=== PATIENT | female | born 1990 | race African-American/Black ===

== ENCOUNTER → 2016-12-08 14:20 | Observation (INO) ==
[2016-12-05 13:24] LABS: Basophils % 0.2 % (0.0-0.8); Eosinophils # 0.1 10*3/uL (0.0-0.87); Eosinophils % 0.8 % (0.00-10.9); Hematocrit 36.7 VOL% (35.7-47.0); Immature Granulocytes % 0.3 %; Immature Granulocytes Absolute 0.04 #; Lymphocytes # 2.4 10*3/uL (1.4-4.0); Mean Corpuscular HGB Conc 35.4 GM/DL (32-36); Mean Corpuscular Hemoglobin 31 PG (27-34); Mean Corpuscular Volume 86.2 FL (87-102); Monocytes # 1.1 10*3/uL (0.11-0.8); Monocytes % 8.9 % (1.7-12.7); Neutrophils # 8.5 10*3/uL (1.4-7.4); Neutrophils % 69.8 % (38.7-73.9); Platelet Count 280 T/CUMM (130-400); Red Blood Count 4.26 MC/CUMM (3.8-5.5); Red Cell Distribution Width 11.9 % (9.3-17.3); White Blood Count 12.2 T/CUMM (4-12)
[2016-12-05] MEDS: LACTATED RINGERS 1,000 ML IV SCH ×3 (13:45→23:44)
[2016-12-05] MEDS: PROMETHAZINE 25 MG/1 ML VIAL IM PRN (13:46)
[2016-12-05] MEDS: ONDANSETRON 4 MG/2 ML VIAL IV PRN (13:52)
[2016-12-05 13:56] LABS: Albumin 3.7 G/DL (3.4-5.0); Calcium 8.9 MG/DL (8.5-10.1); Osmolality,Calculated 266.1 MOS/KG (273-304); Potassium 3.8 MMOL/L (3.5-5.1); Total Protein 7.2 G/DL (6.4-8.3)
[2016-12-05] MEDS: LABETALOL 100 MG TABLET PO SCH (14:41)
[2016-12-05] MEDS: ACETAMINOPHEN 325 MG TABLET PO PRN (15:06)
[2016-12-05] MEDS: PANTOPRAZOLE 40 MG VIAL IV SCH (20:59)
[2016-12-06] MEDS: DOCUSATE SODIUM 100 MG CAPSULE PO SCH ×3 (02:56→21:06)
[2016-12-06] MEDS: LABETALOL 100 MG TABLET PO SCH ×3 (02:56→21:06)
[2016-12-06] MEDS: LACTATED RINGERS 1,000 ML IV SCH ×2 (06:00→12:23)
[2016-12-06] MEDS: ONDANSETRON 4 MG/2 ML VIAL IV PRN ×2 (06:41→17:48)
[2016-12-06] MEDS: ACETAMINOPHEN 325 MG TABLET PO PRN ×2 (07:03→12:14)
[2016-12-06 07:04] LABS: Apearance,Urine Slightly Hazy (Clear); Bilirubin,Urine Negative (Negative); Blood, Urine Negative (Negative); Glucose,Urine (UA) Negative (Negative); Ketones,Urine Negative (Negative); Mucus,Urine Many /LPF (Occasional); Nitrite,Urine Negative (Negative); Protein,Urine Negative; RBC,Urine 2 /HPF (0-4); Squamous Epithelial Cell,Urine Occasional /HPF (0-10); Urine Color Yellow (Yellow); Urine Specific Gravity 1.014 (1.001-1.035); WBC,Urine 6 /HPF (0-6)
[2016-12-06 07:40] LABS: Barbiturates Screen,Urine Negative (Negative); Benzodiazepines Screen,Urine Negative (Negative); Cannabinoid Screen,Urine Positive (Negative); Opiate Screen,Urine Negative (Negative); Phencyclidine Screen,Urine Negative (Negative)
--- NOTE | 2016-12-06 08:08 | Ultrasound Report ---
US OB <= 14 weeks fetus Indication: well-being Findings: Uterus is 10.4 cm in length. Gestational sac is present with pole measurements estimating age at 9 weeks 3 days. heart rate is 177 beats per minute. No abnormality is visualized around the gestational sac. Amniotic fluid volume appears within normal limits for age. Placenta detail is limited. The ovaries appear within normal limits. No free fluid is seen. Impression: Single intrauterine gestation estimated age 9 weeks 3 days without abnormality visualized. PROCEDURE INTERPRETED AT [facility] Final Report Signed by: Dr. Duane Duran
[2016-12-06] MEDS: PANTOPRAZOLE 40 MG VIAL IV SCH ×2 (09:02→21:11)
[2016-12-06] MEDS: MAGNESIUM HYDROXIDE SUSP 30 ML UDCUP PO PRN (10:23)
--- NOTE | 2016-12-06 13:33 | OB/GYN History & Physical ---
History of Present Illness Chief complaint: Hyperemesis gravidarum, PIH History of present illness: Ms. Brown is a 25 year old female This patient presents with excessive nausea and vomiting, no vaginal bleeding, no leaking of fluid, no pelvic pain. Symptoms have been present for since she had confirmed positive test. Oral meds have not been relieving her symptoms. She is admitted at this time for IV fluids and also anti-emetics. Home Medications Medication Instructions Recorded Confirmed Type Labetalol Tab [Trandate Tab] 200 tablet PO BID 12/05/16 12/05/16 History Multivitamin () [ 1 tablet PO DAILY 12/05/16 12/05/16 History Vitamin] Ondansetron Tab [Zofran Tab] 4 tablet PO Q4HR PRN 12/05/16 12/05/16 History metroNIDAZOLE TAB [Flagyl Cap/Tab] 250 tablet PO TID 12/05/16 12/05/16 History Allergies Allergy/AdvReac Type Severity Reaction Status Date / Time No Known Allergies Allergy Verified 12/04/16 17:24 Medical,Surgical,& Family Hx - Medical History Cardio: History of: Hypertension - Surgical History Reproductive Surgeries: Surgical HX of;: Section - Social History Smoking Status: Never smoker Type of Drug Use: None Exam [employer] - Constitutional Vitals: Vital Signs Temp Pulse Resp BP BP Pulse Ox 12/06/16 12:00 98.1 F 90 18 132/79 99 12/06/16 07:16 98.3 F 78 20 122/74 98 12/06/16 06:00 18 12/06/16 05:00 12/06/16 04:00 97.1 F L 79 18 111/72 100 12/06/16 03:00 20 12/06/16 02:00 18 12/06/16 01:00 20 12/06/16 00:00 97 F L 86 16 111/73 100 12/05/16 19:15 98.2 F 101 H 20 109/63 100 12/05/16 15:41 97.5 F L 84 18 127/78 100 General appearance: no acute distress - Antepartum / Post Antepartum Exam Cervix - Dilatation: Thick - Head Head exam: Present: normal inspection - Eye Eye exam: Present: EOMI Pupils: Present: BRIAN - ENT ENT exam: Present: normal exam - Neck Neck exam: Present: normal inspection - Respiratory Respiratory exam: Present: clear to auscultation bilaterally - Breast Breasts: as per HPI Menstruation: as per HPI - Cardiovascular Cardiovascular exam: Present: regular rate and rhythm - GI/Abdominal GI/Abdominal exam: Present: normal bowel sounds - Extremities Exam Extremities exam: Present: normal inspection - Back Exam Back exam: Present: normal inspection - Neurological Exam Neurological exam: Present: alert, oriented X3 - Psychiatric Psychiatric exam: Present: normal affect - Skin Skin exam: Present: normal color Assessment and Plan (1) Nausea and vomiting during Status: Acute Assessment and plan: IV fluids, Phenergan, Zofran, check electrolytes and chemistry panel, also will obtain old OB ultrasound. Current Visit: No Results - Labs CBC & BMP: 12/05/16 13:15 12/05/16 13:15
[2016-12-06] MEDS: guaiFENesin/CODEINE 5 ML LIQUID PO PRN (13:53)
[2016-12-06] MEDS: FLUTICASONE 50 MCG NASAL SPRAY 16 GM BOTTLE BOTH NARES SCH ×3 (14:39→23:08)
[2016-12-07] MEDS: LABETALOL 100 MG TABLET PO SCH ×2 (07:50→09:26)
[2016-12-07] MEDS: DOCUSATE SODIUM 100 MG CAPSULE PO SCH ×2 (08:43→21:25)
[2016-12-07] MEDS: MAGNESIUM HYDROXIDE SUSP 30 ML UDCUP PO PRN ×2 (08:43→21:24)
[2016-12-07] MEDS: FLUTICASONE 50 MCG NASAL SPRAY 16 GM BOTTLE BOTH NARES SCH ×2 (08:44→22:00)
[2016-12-07] MEDS: PANTOPRAZOLE 40 MG VIAL IV SCH ×2 (08:44→21:24)
[2016-12-07 09:55] LABS: Basophils % 0.3 % (0.0-0.8); Eosinophils # 0.1 10*3/uL (0.0-0.87); Eosinophils % 1.2 % (0.00-10.9); Hematocrit 32.9 VOL% (35.7-47.0); Hemoglobin 11.6 GM/DL (12.0-16.0); Immature Granulocytes % 0.4 %; Immature Granulocytes Absolute 0.04 #; Lymphocytes # 1.9 10*3/uL (1.4-4.0); Mean Corpuscular HGB Conc 35.3 GM/DL (32-36); Mean Corpuscular Hemoglobin 31 PG (27-34); Mean Corpuscular Volume 87.3 FL (87-102); Mean Platelet Volume 9.3 FL (9.6-12.0); Monocytes # 0.8 10*3/uL (0.11-0.8); Monocytes % 8.3 % (1.7-12.7); Neutrophils # 6.4 10*3/uL (1.4-7.4); Neutrophils % 68.8 % (38.7-73.9); Platelet Count 239 T/CUMM (130-400); Red Blood Count 3.77 MC/CUMM (3.8-5.5); White Blood Count 9.3 T/CUMM (4-12)
[2016-12-07 10:15] LABS: Alanine Aminotransferase 115 U/L (13-56); Alkaline Phosphatase 51 U/L (45-117); Aspartate Amino Transferase 35 U/L (0-37); Bilirubin,Total < 0.39 MG/DL (0.2-1.0); Blood Urea Nitrogen 2 MG/DL (7-18); Calcium 8.5 MG/DL (8.5-10.1); Glucose 84 MG/DL (74-106); Osmolality,Calculated 267.8 MOS/KG (273-304); Potassium 3.4 MMOL/L (3.5-5.1); Sodium 137 MMOL/L (136-145); Total Protein 5.9 G/DL (6.4-8.3)
--- NOTE | 2016-12-07 11:37 | OB/GYN Progress Note ---
Assessment and Plan (1) Hyperemesis gravidarum Status: Acute Assessment and plan: Continue current management plan. Current Visit: Yes [facility] - PN: Subj Interval history: Stable. Beginning to feel better. Exam [facility] [employer] [facility] - Constitutional Vitals: Vital Signs Temp Pulse Resp BP BP Pulse Ox 12/07/16 08:00 97 F L 83 18 149/104 140/91 98 12/07/16 06:31 20 12/07/16 06:00 20 12/07/16 05:00 20 12/07/16 04:00 97.7 F 85 18 137/79 100 12/07/16 03:00 18 12/07/16 02:00 20 12/07/16 01:00 20 12/07/16 00:00 98 F 85 18 127/78 99 12/06/16 20:00 98.3 F 98 H 20 143/92 99 12/06/16 15:45 97.6 F 96 H 23 122/70 98 12/06/16 12:00 98.1 F 90 18 132/79 99 General appearance: no acute distress - Head Head exam: Present: normal inspection - Respiratory Respiratory exam: Present: clear to auscultation bilaterally - Cardiovascular Cardiovascular exam: Present: regular rate and rhythm - GI/Abdominal GI/Abdominal exam: Present: normal bowel sounds, soft - Extremities Exam Extremities exam: Present: normal inspection - Back Exam Back exam: Present: normal inspection - Neurological Exam Neurological exam: Present: alert, oriented X3 - Psychiatric Psychiatric exam: Present: normal affect, normal mood - Skin Skin exam: Present: normal color, warm Results - Labs CBC & BMP: 12/07/16 09:32 12/07/16 09:32
[2016-12-07] MEDS: LACTATED RINGERS 1,000 ML IV SCH ×3 (14:17→22:00)
[2016-12-07] MEDS: guaiFENesin/CODEINE 5 ML LIQUID PO PRN (15:10)
[2016-12-07] MEDS: ONDANSETRON 4 MG/2 ML VIAL IV PRN (18:52)
[2016-12-07] MEDS: LABETALOL 200 MG TABLET PO SCH (21:24)
[2016-12-07] MEDS: PROMETHAZINE 25 MG/1 ML VIAL IM PRN (23:10)
[2016-12-08] MEDS: LACTATED RINGERS 1,000 ML IV SCH (06:20)
[2016-12-08] MEDS: LABETALOL 200 MG TABLET PO SCH (08:55)
[2016-12-08] MEDS: DOCUSATE SODIUM 100 MG CAPSULE PO SCH (08:55)
[2016-12-08] MEDS: FLUTICASONE 50 MCG NASAL SPRAY 16 GM BOTTLE BOTH NARES SCH (08:58)
[2016-12-08] MEDS: PANTOPRAZOLE 40 MG VIAL IV SCH (08:59)
[2016-12-08 10:16] LABS: Collection Time,Urine 24 HOURS; Total Volume,Urine 3225 ML (400-2000)
[2016-12-08 10:27] LABS: Total Protein 24 Hr Ur Result 258 MG/24HR (0-149.1)
[2016-12-08 10:28] LABS: Creatinine 24 Hr Urine Result 0.99 G/24HR (0.60-1.80)
[2016-12-08] MEDS: ONDANSETRON 4 MG/2 ML VIAL IV PRN (11:10)
[2016-12-08 11:36] VITALS: BP 140/86
--- NOTE | 2016-12-08 13:05 | Discharge Summary ---
Hospital Course - Hospital Course Hospital Course: Patient being discharged on her third hospital day. Admitted with hyperemesis gravidarum, and also hypertension. The 24-hour urine was within normal limits, she has had one episode per day of nausea. She is being discharged with Phenergan suppositories and Zofran and instructed very thoroughly on a bland diet. Ultrasound demonstrated cardiac activity. This patient will be follow- up in our office in approximately 3 weeks. Diagnosis - Discharge Diagnosis (1) Nausea and vomiting during Status: Acute Specialty Discharge - Follow Up or Referrals Follow up with: Theodora Ng MD [Physician] - Discharge Plan - Discharge Data Condition at Discharge: Stable Discharge Diet: advance to your usual diet Activity: increase activity as tolerated Hygiene: may shower Weight Bearing at Discharge: weight bear as tolerated Driving: no restrictions Contact your physician if you experience:: fever over 101, Bleeding - Discharge Medications New Ondansetron Tab [Zofran Tab] 4 mg PO Q4H #30 tablet Promethazine Supp [Phenergan Supp] 25 mg RECTAL Q4H #10 supp No Action Multivitamin () [ Vitamin] 1 tablet PO DAILY Labetalol Tab [Trandate Tab] 200 tablet PO BID metroNIDAZOLE TAB [Flagyl Cap/Tab] 250 tablet PO TID Ondansetron Tab [Zofran Tab] 4 tablet PO Q4HR PRN PRN Reason: Nausea/Vomiting - Follow Up or Referral Follow Up: Theodora Ng MD [Physician] - - Forms/Instructions Instructions: (DC), Hyperemesis Gravidarum (DC), Diet (GEN) , Hypertension (DC) Exam - Constitutional Vitals: Period Temp Pulse Resp BP Sys/Lanza Pulse Ox Last 24 Hr 97.0 F-99.3 F 80-97 18-20 120-152/83-97 98-99 Discharge Results Labs on day of discharge: Labs from last 24 hours 12/08/16 12/08/16 10:11 10:11 Urine Collection Time 24 24 Urine Total Volume 3225 H 3225 H Ur Creatinine Timed 0.99 Ur Total Protein 24 Hr 258 H DS: Provider Date of admission: 12/05/16 12:21 Primary care physician: . No PCP Attending physician on admission: Theodora Ng MD Consults: 12/06/16 07:58 Consult to Case Mgmt/Social Srvs [CONS] Routine Reason for Case Mgmt/Social Srvs: Other Consult Comment: pos thc screen/ 9 wks. iup Discharging clinician: Theodora Ng MD
[~2016-12-08 14:20] MED LIST: LABETALOL 100 MG TABLET PO SCH; MAGNESIUM CITRATE 300 ML BOTTLE PO PRN; PHENOL 1.4% THROAT SPRAY 177 ML BOTTLE PO PRN; SODIUM PHOSPHATE ENEMA 133 ML BOTTLE RECTAL ONE; metroNIDAZOLE 250 MG TABLET PO SCH
== END | disposition home or self-care (01) ==
LOC: N.OB
PROVIDERS: ADMIT Obstetrics & Gynecology; ATTEND Obstetrics & Gynecology

== ENCOUNTER 2017-05-27 11:25 | Inpatient (IN) ==
[2017-05-27] MEDS ORDERED: ONDANSETRON 4 MG/2 ML VIAL IV PRN (12:17)
[2017-05-27] MEDS ORDERED: OXYTOCIN 10 UNIT/ML VIAL IM ONE (12:21)
[2017-05-27] MEDS ORDERED: OXYTOCIN/LR 30 UNIT/1,000 ML BAG IV ONE (12:21)
[2017-05-27] MEDS ORDERED: CITRIC ACID/SODIUM CITRATE 30 ML UDCUP PO ONE (12:23)
[2017-05-27] MEDS ORDERED: ePHEDrine 50 MG/ML AMP IV PRN (12:23)
[2017-05-27] MEDS ORDERED: LACTATED RINGERS 1,000 ML IV ONE (12:23)
[2017-05-27] MEDS ORDERED: hydrOXYzine HCL 25 MG/1 ML VIAL IM PRN ×2 (12:23→17:41)
[2017-05-27] MEDS ORDERED: PROMETHAZINE 25 MG/1 ML VIAL IM ONE (12:23)
[2017-05-27] MEDS ORDERED: FAMOTIDINE 20 MG/2 ML VIAL IV ONE (12:23)
[2017-05-27] MEDS ORDERED: LACTATED RINGERS 250 ML IV PRN (12:23)
[2017-05-27] MEDS ORDERED: diphenhydrAMINE 50 MG/1 ML VIAL IV PRN ×3 (12:23→17:41)
[2017-05-27] MEDS ORDERED: ceFAZolin 2,000 MG in PREMIX 1 EACH IV ONE (12:29)
[2017-05-27 12:40] LABS: Basophils % 0.3 % (0.0-0.8); Eosinophils # 0.1 10*3/uL (0.0-0.87); Eosinophils % 0.4 % (0.00-10.9); Hematocrit 33.1 VOL% (35.7-47.0); Hemoglobin 11.1 GM/DL (12.0-16.0); Immature Granulocytes % 0.5 %; Immature Granulocytes Absolute 0.06 #; Lymphocytes # 1.9 10*3/uL (1.4-4.0); Lymphocytes % 16.1 % (21.3-54.2); Mean Corpuscular HGB Conc 33.5 GM/DL (32-36); Mean Corpuscular Hemoglobin 30 PG (27-34); Mean Corpuscular Volume 88.3 FL (87-102); Mean Platelet Volume 10.3 FL (9.6-12.0); Monocytes # 1.3 10*3/uL (0.11-0.8); Monocytes % 10.8 % (1.7-12.7); Neutrophils # 8.6 10*3/uL (1.4-7.4); Neutrophils % 71.9 % (38.7-73.9); Platelet Count 293 T/CUMM (130-400); Red Blood Count 3.75 MC/CUMM (3.8-5.5); Red Cell Distribution Width 12.9 % (9.3-17.3); White Blood Count 11.9 T/CUMM (4-12)
[2017-05-27 12:48] LABS: INR 0.9; PT Patient Result 9.4 SECS; Partial Thromboplastin Time 28.9 SECS (0-40)
[2017-05-27 13:02] LABS: Alanine Aminotransferase 16 U/L (13-56); Albumin 2.6 G/DL (3.4-5.0); Alkaline Phosphatase 123 U/L (45-117); Aspartate Amino Transferase 24 U/L (0-37); Bilirubin,Direct < 0.050 MG/DL (0.0-0.20); Bilirubin,Total < 0.39 MG/DL (0.2-1.0); Blood Urea Nitrogen 12 MG/DL (7-18); Calcium 8.3 MG/DL (8.5-10.1); Glucose 87 MG/DL (74-106); Potassium 4.2 MMOL/L (3.5-5.1); Sodium 136 MMOL/L (136-145); Total Protein 6.3 G/DL (6.4-8.3); Uric Acid 4.5 MG/DL (2.6-6.0)
[2017-05-27] MEDS ORDERED: MAGNESIUM SULF RIDER 100 ML IV ONE (14:08)
[2017-05-27] MEDS ORDERED: LABETALOL 200 MG TABLET PO ONE (14:10)
[2017-05-27] MEDS: LACTATED RINGERS 1,000 ML IV SCH (14:29)
[2017-05-27] MEDS: MAGNESIUM SULF DRIP 40 GM/1,000 ML ML IV SCH (15:29)
[2017-05-27 17:41] LABS: Cord Arterial Blood HCO3 23.9 MMOL/L
[2017-05-27] MEDS ORDERED: HYDROmorphone 2 MG/1 ML VIAL IV PRN (17:41)
[2017-05-27 17:43] LABS: Apearance,Urine CLEAR (Clear); Bacteria,Urine Occasional /HPF (Few); Bilirubin,Urine Negative (Negative); Blood, Urine Negative (Negative); Glucose,Urine (UA) Negative (Negative); Ketones,Urine 20 mg/dL (Negative); Mucus,Urine Occasional /LPF (Occasional); Nitrite,Urine Negative (Negative); Protein,Urine Negative; RBC,Urine <1 /HPF (0-4); Squamous Epithelial Cell,Urine Occasional /HPF (0-10); Urine Color Colorless (Yellow); Urine Specific Gravity 1.008 (1.001-1.035); Urine Urobilinogen < 2.0 EU/DL (0.2-1.0); WBC,Urine <1 /HPF (0-6)
[2017-05-27] MEDS ORDERED: fentaNYL 100 MCG/2 ML VIAL ONE (17:44)
[2017-05-27] MEDS ORDERED: MORPHINE 10 MG/10 ML VIAL ONE (17:44)
[2017-05-27 17:45] LABS: Cord Venous Blood HCO3 22.7 MMOL/L; Cord Venous Blood PCO2 42.6 MMHG; Cord Venous Blood PO2 30.6 MMHG
[2017-05-27] MEDS: hydrALAZINE 20 MG/1 ML VIAL IV PRN ×2 (19:06→19:26)
[2017-05-27] MEDS ORDERED: OXYTOCIN/LR 20 UNIT/1,000 ML BAG IV ONE ×2 (19:20→19:21)
[2017-05-27] MEDS ORDERED: NALOXONE 0.4 MG/ML VIAL IV PRN (19:48)
[2017-05-27] MEDS ORDERED: OXYTOCIN 10 UNIT/ML VIAL ONE (19:59)
[2017-05-27] MEDS ORDERED: MORPHINE PCA 30 MG/30 ML SYRINGE IV SCH (20:00)
[2017-05-28] MEDS ORDERED: SODIUM CHLORIDE 0.9% 100 ML IV ONE ×2 (03:53→16:13)
[2017-05-28] MEDS ORDERED: ceFAZolin 1,000 MG in SYRINGE 1 EACH IV SCH ×2 (04:00→16:30)
[2017-05-28] MEDS: ceFAZolin 1,000 MG in SYRINGE 1 EACH IV SCH ×2 (04:00→16:19)
[2017-05-28 06:28] LABS: Basophils % 0.2 % (0.0-0.8); Eosinophils % 0.1 % (0.00-10.9); Hematocrit 34.2 VOL% (35.7-47.0); Hemoglobin 11.3 GM/DL (12.0-16.0); Immature Granulocytes % 0.4 %; Immature Granulocytes Absolute 0.07 #; Lymphocytes # 2.1 10*3/uL (1.4-4.0); Lymphocytes % 12.4 % (21.3-54.2); Mean Corpuscular Hemoglobin 30 PG (27-34); Mean Corpuscular Volume 89.5 FL (87-102); Mean Platelet Volume 10.2 FL (9.6-12.0); Monocytes # 1.4 10*3/uL (0.11-0.8); Monocytes % 8.2 % (1.7-12.7); Neutrophils # 13.2 10*3/uL (1.4-7.4); Neutrophils % 78.7 % (38.7-73.9); Platelet Count 311 T/CUMM (130-400); Red Blood Count 3.82 MC/CUMM (3.8-5.5); Red Cell Distribution Width 12.8 % (9.3-17.3); White Blood Count 16.8 T/CUMM (4-12)
[2017-05-28] MEDS: ACETAMINOPHEN 325 MG TABLET PO PRN ×2 (07:53→15:51)
[2017-05-28] MEDS: LACTATED RINGERS 1,000 ML IV SCH ×6 (09:30→17:50)
[2017-05-28] MEDS: MAGNESIUM SULF DRIP 40 GM/1,000 ML ML IV SCH (12:30)
[2017-05-28] MEDS ORDERED: FUROSEMIDE 40 MG/4 ML VIAL IV SCH (13:30)
[2017-05-28] MEDS ORDERED: oxyCODONE/ACETAMINOPHEN 5-325 MG TABLET PO PRN (17:34)
[2017-05-28] MEDS: MAGNESIUM HYDROXIDE SUSP 30 ML UDCUP PO PRN (18:20)
[2017-05-28] MEDS: IBUPROFEN 800 MG TABLET PO PRN (18:21)
[2017-05-28] MEDS: DOCUSATE SODIUM 100 MG CAPSULE PO SCH (22:39)
[2017-05-28] MEDS: SIMETHICONE CHEW 80 MG TABLET PO PRN (22:39)
[2017-05-29] MEDS: ACETAMINOPHEN 325 MG TABLET PO PRN (00:09)
[2017-05-29] MEDS: IBUPROFEN 800 MG TABLET PO PRN ×2 (02:05→19:28)
[2017-05-29] MEDS: DOCUSATE SODIUM 100 MG CAPSULE PO SCH ×2 (08:46→20:21)
[2017-05-29] MEDS: MULTIVITAMIN (PRENATAL) TABLET PO SCH (08:46)
[2017-05-29] MEDS: MAGNESIUM HYDROXIDE SUSP 30 ML UDCUP PO PRN ×2 (08:47→19:27)
[2017-05-29] MEDS ORDERED: hydrALAZINE 20 MG/1 ML VIAL IV ONE (11:00)
[2017-05-29] MEDS: SIMETHICONE CHEW 80 MG TABLET PO PRN (19:27)
[2017-05-29] MEDS: CARVEDILOL 12.5 MG TABLET PO SCH (21:35)
[2017-05-30] MEDS ORDERED: BISACODYL 10 MG SUPP RECTAL PRN (03:48)
[2017-05-30] MEDS: IBUPROFEN 800 MG TABLET PO PRN (03:52)
[2017-05-30] MEDS: MAGNESIUM HYDROXIDE SUSP 30 ML UDCUP PO PRN (04:55)
[2017-05-30] MEDS ORDERED: MAGNESIUM CITRATE 300 ML BOTTLE PO ONE (06:30)
[2017-05-30 07:47] VITALS: BP 124/81
[2017-05-30] MEDS: CARVEDILOL 12.5 MG TABLET PO SCH (08:28)
[2017-05-30] MEDS: DOCUSATE SODIUM 100 MG CAPSULE PO SCH (08:29)
[2017-05-30] MEDS: MULTIVITAMIN (PRENATAL) TABLET PO SCH (08:29)
[2017-05-30] MEDS ORDERED: DIPH/TET/ACEL PERT BOOSTER VACCINE 0.5 ML VIAL IM ONE (10:13)
== END 2017-05-30 17:06 | disposition home or self-care (01) | DRG 540 ==
LOC: N.LDOUT 11:25 → N.LD 11:27 → N.OB 05-28 20:15
PROVIDERS: ADMIT Obstetrics & Gynecology; ATTEND Obstetrics & Gynecology
PROC: LDCSECT (ICD-10-PCS; 2017-05-27 16:30)